=== PATIENT | female | born 1965 | race Caucasian/White ===

== ENCOUNTER 2020-11-03 10:11 | Emergency (ER) | payer OTHER, SELFPAY ==
[2020-11-03 10:12] VITALS: BP 118/96; PULSE 89; RESP 21; TEMP 36.1; O2SAT 96; BMI 23.3
--- NOTE | 2020-11-03 10:33 | EKG12_ITS ---
Test Reason : SOB Blood Pressure : / mmHG Vent. Rate : 084 BPM Atrial Rate : 084 BPM P-R Int : 124 ms QRS Dur : 082 ms QT Int : 378 ms P-R-T Axes : 056 041 024 degrees QTc Int : 446 ms Normal sinus rhythm Normal ECG Confirmed by OSITO MYERS, SHELBY ([id number]), photographic editor LESLIE FIGUEROA ([id number]) on 11/04/2020 11:16:30 AM Referred By: KEELEY Confirmed By:SHELBY MCNEILL MD
--- NOTE | 2020-11-03 10:35 | ED.VISSUMM ---
- ER Visit Summary Date of Service: 11/03/20 Chief Complaint: Cough, shortness of breath History of Present Illness: The patient is a 55 F presenting with cough, shortness of breath. The symptoms started in September. She tested positive for Covid on September 17. She states she has not felt well since that time. She complains of cough occasionally productive of sputum. She has shortness of breath worsened with exertion. She has chest pain when she coughs. She denies fever. She has been on multiple courses of antibiotics and steroids. She is scheduled to see pulmonology on . Physical Examination: Vitals are stable. Patient is afebrile. Alert no acute distress. HEENT exam is unremarkable. Neck is supple. Lungs are mild expiratory wheezing bilaterally. Heart is regular rate and rhythm. Abdomen is soft nontender nondistended. Extremities are unremarkable. Skin is warm and dry. No focal neurologic deficit. Remainder of exam is unremarkable. Emergency Department Course and Treatment: EKG is sinus rhythm rate of 84 with no acute ischemic changes. CBC, chemistries unremarkable. Troponin is negative. CTA chest was obtained and shows minimal increased markings are seen at the left lung base suggestive of linear atelectasis and/or early infiltrate. Delta troponin is also negative. She was given DuoNeb aerosol with some improvement. Her ambulatory pulse ox is 95% on room air. She just recently finished a course of steroids. She will take her antibiotics until complete. She is given prescription for Tessalon Perles. She has an appointment scheduled with pulmonology in 2 days. She is advised to return to the ED for worsening complaints. Disposition: Discharge home Impression: Viral syndrome This note was generated with [employer] dictation software. It may contain incorrect words, spelling, and punctuation that were not noted in review of the chart prior to signing ED Disposition - Plan for ED Patient: Instructions: ED Viral Syndrome (Adult) Prescriptions: Benzonatate [Tessalon Perle] 200 mg PO TID PRN PRN #20 cap PRN Reason: Cough Prescription Printed Referrals: Eli Galvez DO [Primary Care Provider] -
--- NOTE | 2020-11-03 10:38 | NURSING ---
NO OLD EKGS
[2020-11-03 11:04] VITALS: PULSE 84; RESP 20; O2SAT 95
[2020-11-03] MEDS: Ipratropium/Albuterol Sulfate 3 ML AMPUL.NEB INHALATION (11:05)
[2020-11-03 11:06] VITALS: O2SAT 95
[2020-11-03 11:07] VITALS: PULSE 85; RESP 20; O2SAT 96
[2020-11-03 11:16] LABS: Absolute Lymphocyte Count 1.65 X10^3/uL (0.83-4.51); Absolute Neutrophil Count 3.8 X10^3/uL (2.0-7.7); Basophil# 0.04 X10^3/uL; Basophil% 0.6 % (0-1); Eosinophil# 0.29 X10^3/uL; Eosinophils% 4.6 % (0-5); Hematocrit 39.5 % (37-47); Hemoglobin 12.8 g/dL (12.0-15.0); Lymphocyte # 1.65 X10^3/ul (4.0); Lymphocyte % 26.4 % (19-41); Mean Corp Hgb Conc 32.4 g/dL (32-36); Mean Corpuscular Hgb 30.7 pg (27.0-32.0); Mean Corpuscular Volume 94.7 fL (81-99); Mean Platelet Vol. 9.2 fl (6.2-12.0); Monocyte# 0.48 X10^3/uL; Monocyte% 7.7 % (0-10); NRBC Flagged by Analyzer 0 % (0-5); Neutrophil # 3.77 X10^3/uL (2.7-7.7); Neutrophil % 60.4 % (47-70); Platelet Count 284 K/mm3 (150-450); RBC Distribution Width SD 45.5 fl (35.1-43.9); Red Blood Count 4.17 M/mm3 (4.2-5.4); White Blood Count 6.3 K/mm3 (4.4-11.0)
[2020-11-03 11:33] LABS: Anion Gap 7 (5-15); BUN 16 mg/dL (7-18); BUN/Creat Ratio 27.2 RATIO (10-20); Calcium,Total 8.9 mg/dL (8.5-10.1); Chloride 108 mmol/L (98-107); Creatinine, Serum 0.59 mg/dL (0.55-1.02); EST Glomerular Filtration Rate 113 mL/min (>60); Est Glom Filt Rate - Afr Amer 137 mL/min (>60); Estimated Creatinine Clearance 102.04 ml/min; Glucose 97 mg/dL (74-106); Potassium 3.5 mmol/L (3.5-5.1); Sodium Level 141 mmol/L (136-145)
--- NOTE | 2020-11-03 11:48 | CT_ITS ---
STUDY: CTA CHEST REASON FOR EXAM: Female, 55 years old. +COVID. INCREASE SOB RADIATION DOSAGE (If Supplied By Facility): CTDIvol = ( 6.26 ) mGy, DLP = ( 288.13 ) mGycm TECHNIQUE: The examination was performed with the intravenous administration of IV 75mL Isovue-370. Post-processing of the angiographic images was performed, with multiplanar reformation and 3D reconstruction. Individualized dose optimization techniques were used for this CT. COMPARISON: None. FINDINGS: Normal enhancement of the main pulmonary artery and right and left pulmonary arteries. Normal enhancement of the bilateral peripheral pulmonary arteries. There is no demonstrated pulmonary embolism. Normal thoracic aorta and visualized great vessels. There is no demonstrated aortic dissection. Normal heart and pericardium. Normal mediastinum. Normal hilar regions. Normal visualized trachea and bronchi. The lungs are well expanded. Minimal increased linear markings at the left lung base suggestive of linear atelectasis and/or early infiltrate. Normal pleura. Normal chest wall structures. Normal osseous structures. Normal visualized upper abdomen. CT/CTA Chest W/WO Contrast IMPRESSION: Minimal increased markings are seen at the left lung base suggestive of linear atelectasis and/or early infiltrate. Electronically Signed: Jake Corona MD at 12:22 EST , Service support ,
[2020-11-03 12:54] VITALS: PULSE 85; RESP 24
[2020-11-03] MEDS: Albuterol 2.5 MG/3 ML VIAL.NEB. INHALATION ×2 (13:31)
--- NOTE | 2020-11-03 14:21 | ED.DEP ---
ED Disposition - Plan for ED Patient: Instructions: ED Viral Syndrome (Adult) Prescriptions: Benzonatate [Tessalon Perle] 200 mg PO TID PRN PRN #20 cap PRN Reason: Cough Prescription Printed Referrals: Eli Galvez DO [Primary Care Provider] -
[2020-11-03 14:42] VITALS: PULSE 79; RESP 20; O2SAT 95
== END 2020-11-03 14:52 | disposition home or self-care (01) ==
LOC: ED 11:39
PROVIDERS: Emergency Provider Emergency Medicine; PCP Internal Medicine
DX: B34.9 Viral infection, unspecified (principal); Z86.19 Personal history of other infectious and parasitic diseases
CPT/HCPCS: 71275; 80048; 84484; 85025; 93005; 94640; 99284; J7040; Q9967; A4216